=== PATIENT | male | born 1980 | race Caucasian/White ===

== ENCOUNTER 2018-11-03 00:28 | Emergency (ER) | payer SELFPAY ==
[2018-11-03] MEDS ORDERED: AZITHROMYCIN 250 MG TAB PO ONE (00:44)
[2018-11-03] MEDS ORDERED: cefTRIAXone SODIUM 1 GM VIAL IM ONE (00:44)
[2018-11-03] MEDS ORDERED: LIDOCAINE 1% 10 ML VIAL INJ ONE (00:47)
--- NOTE | 2018-11-03 00:49 | ED.PDOC ---
History of Present Illness - General Chief Complaint: Problem Stated Complaint: genital discharge Time Seen by Provider: 11/03/18 00:43 Source: patient Exam Limitations: no limitations - History of Present Illness Initial Comments: patient comes in today for urethral infection. 4-5 days ago patient had a piercing which he is subsequently removed. Yesterday he realized he was having drainage that was purulent and today noted that he had some dysuria. Patient took out the piercing when he realized yesterday he was having drainage. He has no fever, tears, nausea or vomiting. Patient's past medical history is significant for hepatitis C. Patient is sexually active and has had STDs in the past. Patient is allergic to penicillin and sulfa but can take cephalosporins without difficulty and has taken both Keflex and Rocephin in the past Timing/Duration: yesterday, getting worse Quality: mild Onset Location: urethral Radiation: none Activites at Onset: none Sexual intercourse history: less than 2 months ago Improving Factors: nothing Worsening Factors: nothing Associated Symptoms: denies symptoms Allergies/Adverse Reactions: Allergies Penicillin G Allergy (Intermediate, Unverified 06/19/13 21:26) Sulfa Antibiotics Allergy (Verified 11/03/18 00:46) Home Medications: Ambulatory Orders Cephalexin Monohydrate [Keflex] 500 mg PO TID #30 cap 11/03/18 Review of Systems - Review of Systems Constitutional: States: no symptoms reported. Denies: chills, fever EENTM: States: no symptoms reported. Denies: eye pain, ear discharge, nose congestion Respiratory: States: no symptoms reported. Denies: cough, short of breath Cardiology: States: no symptoms reported. Denies: chest pain, palpitations Gastrointestinal/Abdominal: States: no symptoms reported. Denies: abdominal pain, nausea, vomiting Genitourinary: States: see HPI, discharge, dysuria Past Medical History (General) - Patient Medical History Hx MRSA: Yes - Face 2013 MRSA Source:: Wound Physical Exam - Physical Exam General Appearance: Alert, Anxious, No apparent distress Eyes, Ears, Nose, Throat Exam: normal ENT inspection Cardiovascular/Respiratory: regular rate, rhythm, no M/R/G, normal peripheral pulses, normal breath sounds, no respiratory distress Gastrointestinal/Abdominal: normal bowel sounds Male Genital Exam: other - patient has thin, yellow drainage from urthra, piercing site is closed with no erythema or induration Progress - Progress Progress: discussed with patient the importance of follow-up with infection. We have given him Rocephin 1 g and Zithromax 1 g today. We'll send him home on Keflex 500 mg 3 times a day 10 days and asked him to follow up with his PCP on Sunday. Return to ER for swelling, redness, temperature greater than 100.5. GC and chlamydia are send outs that they were taken to the [facility] department can follow-up if it is an STD. 11/03/18 00:52 Departure - Departure Clinical Impression: Urethritis Disposition: Discharge to Home or Self Care Condition: Fair Departure Forms: ED Discharge - Pt. Copy, Patient Portal Self Enrollment Prescriptions: Cephalexin Monohydrate [Keflex] 500 mg PO TID #30 cap Home Medications: Ambulatory Orders Cephalexin Monohydrate [Keflex] 500 mg PO TID #30 cap 11/03/18 Additional Instructions: follow up with his PCP on Sunday. Return to ER for swelling, redness, temperature greater than 100.5.
[2018-11-03 01:17] VITALS: BP 140/86; TEMP 99.1; O2SAT 97
== END 2018-11-03 01:10 | disposition home or self-care (01) ==
LOC: ER 00:28
DX: N34.2 Other urethritis (principal); Z88.2 Allergy status to sulfonamides; Z88.0 Allergy status to penicillin
CPT/HCPCS: 81001; 87491; 87591; J0696; Q0144

== ENCOUNTER 2020-02-11 20:17 | Emergency (ER) | payer SELFPAY ==
[2020-02-11] MEDS ORDERED: VANCOMYCIN HCL INJ 1,000 MG, VANCOMYCIN HCL INJ 500 MG in SODIUM CHLORIDE 0.9% 250ML 25... IVPB ONE (20:41)
[2020-02-11] MEDS ORDERED: CEFEPIME 2 GM in SODIUM CHL 0.9% 100ML MINI-BAG 100 ML IVPB ONE (20:41)
[2020-02-11] MEDS ORDERED: CEFEPIME 2 GM VIAL ONE (20:53)
[2020-02-11] MEDS ORDERED: VANCOMYCIN HCL INJ 500 MG VIAL ONE (20:53)
[2020-02-11] MEDS ORDERED: VANCOMYCIN HCL INJ 1,000 MG VIAL IVPB ONE (20:53)
[2020-02-11] MEDS ORDERED: SODIUM CHL 0.9% 100ML MINI-BAG 0 ML IVPB ONE (20:53)
[2020-02-11] MEDS ORDERED: SODIUM CHLORIDE 0.9% 250ML 0 ML ONE (20:53)
[2020-02-11] MEDS ORDERED: TETANUS,DIPHTHERIA,PERTUSSIS 1 EA SYG IM ONE (21:20)
[2020-02-11] MEDS ORDERED: CIPROFLOXACIN 500 MG TAB PO ONE (21:20)
--- NOTE | 2020-02-11 21:24 | RAD ---
CLINICAL HISTORY: 39 years Male nail to distal 1st metatarsal area COMPARISON: None TECHNIQUE: AP and lateral views of the left [] foot are obtained. FINDINGS: OSSEOUS: There is no evidence of acute fracture or osteolytic/osteoblastic lesions. There is no evidence of subluxation or dislocation. The joint spaces are preserved. However there is widening of the space between the first and second MCP joints with soft tissue edema. There is no evidence of degenerative osteophytosis or sclerosis. There is no evidence of marginal erosive changes to suggest an inflammatory arthritis. The ankle mortise is symmetric with a smooth talar dome and no evidence of widening of the distal tibiofibular syndesmosis. SOFT TISSUES: There is soft tissue swelling along the plantar aspect of the forefoot at the level of the MTP joints likely secondary to the reported penetrating injury No evidence of significant soft tissue calcifications.. No radiopaque foreign bodies. There is no evidence of an ankle joint effusion. IMPRESSION: No acute osseous abnormality. Soft tissue injury between the first and second MTP joints with widening. Ligamentous injury not excludable. Remainder of findings as described above. Electronically signed by: Eunice Palma MD 02/11/2020 9:22 PM CDT
[2020-02-11] MEDS ORDERED: CEPHALEXIN MONOHYDRATE 500 MG CAP PO ONE (21:25)
[2020-02-11] MEDS ORDERED: rifAMPin 300 MG CAP PO ONE (21:25)
--- NOTE | 2020-02-11 21:38 | ED.PDOC ---
History of Present Illness - General Chief Complaint: Lower Extremity Injury Stated Complaint: left foot red and swollen Time Seen by Provider: 02/11/20 20:38 Source: patient Exam Limitations: no limitations - History of Present Illness Initial Comments: The patient is a 39-year-old male presented emergency room secondary to pain in his left foot. Apparently about 36 hours ago the patient stepped on a nail and the nail and then just adjacent to the distal first metatarsal left foot and almost came out the skin on the top of his foot. He removed the nail and try to clean the wound as best he could. Now approximately 36 hours later there is significant erythema and swelling. The entry wound has completely sealed over. No evidence of any abscess formation yet at this time. He is able to bend the toe. He is neurovascularly intact. There is significant pain. Patient does have several medication allergies. The patient is refusing IV antibiotics. He does understand that this may limit the effectiveness of treatment and increase the risk of him losing the appendage. Again he has been offered IV antibiotics and is refusing. Timing/Duration: other Severity: severe Improving Factors: nothing Worsening Factors: movement Associated Symptoms: denies symptoms Allergies/Adverse Reactions: Allergies Penicillin G Allergy (Intermediate, Unverified 06/19/13 21:26) Sulfa Antibiotics Allergy (Verified 11/03/18 00:46) Home Medications: Ambulatory Orders Cephalexin Monohydrate [Keflex] 500 mg PO TID #30 cap 11/03/18 Cephalexin Monohydrate [Keflex] 500 mg PO Q8H #45 cap 02/11/20 Ciprofloxacin [Cipro] 500 mg PO BID #28 tab 02/11/20 Rifampin [Rifadin] 300 mg PO Q8HR #42 cap 02/11/20 Review of Systems - Review of Systems Constitutional: States: malaise EENTM: States: no symptoms reported Respiratory: States: no symptoms reported Cardiology: States: no symptoms reported Gastrointestinal/Abdominal: States: no symptoms reported Genitourinary: States: no symptoms reported Musculoskeletal: States: see HPI Skin: States: see HPI Neurological: States: no symptoms reported Endocrine: States: no symptoms reported All other Systems: No Change from Baseline Past Medical History (General) - Patient Medical History Hx Seizures: No Hx Stroke: No Hx Dementia: No Hx Asthma: Yes Hx of COPD: No Hx Cardiac Disorders: No Hx Congestive Heart Failure: No Hx Pacemaker: No Hx Hypertension: No Hx Thyroid Disease: No Hx Diabetes: No Hx Gastroesophageal Reflux: No Hx Renal Disease: No Hx Cancer: No Hx of HIV: No Hx Hepatitis C: No Hx MRSA: Yes - Face 2013 MRSA Source:: Wound Surgical History: tonsillectomy, other - Vaccination History Hx Tetanus, Diphtheria Vaccination: No Hx Influenza Vaccination: No Hx Pneumococcal Vaccination: No Immunizations Up to Date: No - Social History Hx Tobacco Use: Yes Hx Chewing Tobacco Use: No Hx Alcohol Use: Yes Hx Substance Use: No Hx Substance Use Treatment: No Hx Depression: Yes Feels Threatened In Home Enviroment: No Feels Threatened In a Relationship: No Hx Physical Abuse: No Hx Emotional Abuse: No Hx Suspected Abuse: No - Activities of Daily Living Hospice Agency (if applicable):: None - Female History Patient is a Female of Child Bearing Age (10 -59 yrs old): No Family Medical History - Family History Father Family History: Unknown Physical Exam - Physical Exam General Appearance: Alert, No apparent distress Eye Exam: bilateral normal Ears, Nose, Throat: hearing grossly normal, normal pharynx Respiratory: no respiratory distress, no accessory muscle use Cardiovascular/Chest: normal peripheral pulses, no edema Peripheral Pulses: dorsalis pedis,right: 2+, dorsalis pedis,left: 2+ Rectal Exam: deferred Extremity: normal range of motion, no calf tenderness, normal capillary refill Neurologic: screw cutter II-XII nml as tested, alert, normal mood/affect, oriented x 3 Skin Exam: other - Severe erythema of the left foot surrounding the puncture site and the distal first metatarsal. Exquisite tenderness to palpation. Moderate swelling. No abscess at this point to drain. Comments: Vital Signs - 24 hr 02/11/20 20:25 Temperature 98.5 F Pulse Rate [ 88 pulse ox] Respiratory 18 Rate Blood Pressure 130/81 [Left Arm] O2 Sat by Pulse 99 Oximetry Progress - Progress Progress: 02/11/20 21:40 The patient is a 39-year-old male presented emergency room secondary to cellulitis developing at a puncture wound from yesterday. Erythema south rrounding the distal first distal metatarsal on the left. No abscess to drain at this time. X-ray shows no obvious bony pathology. The patient refuses IV antibiotics and does understand that that may reduce the efficacy and lead to a poor outcome. Given the patient's antibiotic allergies and that limitation, the patient is going to be placed on rifampin, Keflex and ciprofloxacin to primarily target staph, strep and Pseudomonas. He will be placed on these for 14 days. He does need to take these with food to prevent stomach upset. Additionally the patient has been instructed to xuan the border of the redness over the next few days to make sure it is gradually reducing. Obviously if his clinical condition is worsening then he absolutely needs to come in and get IV antibiotics. He eaton s understand this. The patient can use crutches to get around secondary to pain. Motrin or Aleve will be most beneficial due to significant inflammation. Keep well-hydrated while on the antibiotics. Avoid alcohol intake. He does need to follow-up with his primary care doctor before the weekend for repeat evaluation. ER warnings are given. lucas [email or web address] [phone] 02/11/20 21:46 the patient also received a tetanus shot. - Results/Orders Results/Orders: X-ray of the left foot shows no evidence of any fracture or dislocation. No evidence of any residual foreign body. Possible ligamentous injury between the first and second metatarsal joints 02/11/20 21:32 BLOOD CULTURE Stat Laboratory Results - last 24 hr 02/11/20 02/11/20 21:03 21:03 WBC 7.4 RBC 5.25 Hgb 15.5 Hct 45.9 MCV 87.3 MCH 29.6 MCHC 33.9 RDW 13.2 Plt Count 219 MPV 7.7 Absolute Neuts (auto) 5.10 Absolute Lymphs (auto) 1.30 Absolute Monos (auto) 0.70 Absolute Eos (auto) 0.20 Absolute Basos (auto) 0.10 Neutrophils % 69.2 Lymphocytes % 16.9 L Monocytes % 9.6 H Eosinophils % 3.2 Basophils % 1.1 Sodium 137 Potassium 3.3 L Chloride 102 Carbon Dioxide 29 Anion Gap 9.3 L BUN 17 Creatinine 0.92 BUN/Creatinine Ratio 18.5 Random Glucose 98 Serum Osmolality 275.3 Calcium 9.0 Total Bilirubin 0.4 AST 22 ALT 17 Alkaline Phosphatase 70 Serum Total Protein 6.9 Albumin 3.9 Globulin 3.0 Albumin/Globulin Ratio 1.3 Departure - Departure Clinical Impression: Cellulitis of foot Puncture wound of foot Qualifiers: Encounter type: initial encounter Laterality: left Qualified Code(s): S91.332A - Puncture wound without foreign body, left foot, initial encounter Disposition: Discharge to Home or Self Care Condition: Fair Departure Forms: ED Discharge - Pt. Copy, Patient Portal Self Enrollment Instructions: Cellulitis (Skin Infection), Adult (DC) Diet: regular diet Activity: increase activity as tolerated Prescriptions: Rifampin [Rifadin] 300 mg PO Q8HR #42 cap Cephalexin Monohydrate [Keflex] 500 mg PO Q8H #45 cap Ciprofloxacin [Cipro] 500 mg PO BID #28 tab Home Medications: Ambulatory Orders Cephalexin Monohydrate [Keflex] 500 mg PO TID #30 cap 11/03/18 Cephalexin Monohydrate [Keflex] 500 mg PO Q8H #45 cap 02/11/20 Ciprofloxacin [Cipro] 500 mg PO BID #28 tab 02/11/20 Rifampin [Rifadin] 300 mg PO Q8HR #42 cap 02/11/20 Additional Instructions: The patient is a 39-year-old male presented emergency room secondary to cellulitis developing at a puncture wound from yesterday. Erythema surrounding the distal first distal metatarsal on the left. No abscess to drain at this time. X-ray shows no obvious bony pathology. The patient refuses IV antibiotics and does understand that that may reduce the efficacy and lead to a poor outcome. Given the patient's antibiotic allergies and that limitation, the patient is going to be placed on rifampin, Keflex and ciprofloxacin to primarily target staph, strep and Pseudomonas. He will be placed on these for 14 days. He does need to take these with food to prevent stomach upset. Additionally the patient has been instructed to xuan the border of the redness over the next few days to make sure it is gradually reducing. Obviously if his clinical condition is worsening then he absolutely needs to come in and get IV antibiotics. He does understand this. The patient can use crutches to get around secondary to pain. Motrin or Aleve will be most beneficial due to significant inflammation. Keep well-hydrated while on the antibiotics. Avoid alcohol intake. He does need to follow-up with his primary care doctor before the weekend for repeat evaluation. ER warnings are given.
[2020-02-11 22:24] VITALS: BP 123/74; TEMP 98.1; O2SAT 97
== END 2020-02-11 22:00 | disposition home or self-care (01) ==
LOC: ER 20:17
DX: L03.116 Cellulitis of left lower limb (principal); S91.332A Puncture wound without foreign body, left foot, initial encounter; W45.0XXA Nail entering through skin, initial encounter; Y92.9 Unspecified place or not applicable; F17.200 Nicotine dependence, unspecified, uncomplicated

== ENCOUNTER → 2020-03-22 | Outpatient (CLI) | payer OTHER ==
--- NOTE | 2020-03-23 08:34 | RAD ---
EXAM DESCRIPTION: Chest,2 Views CLINICAL HISTORY: ENCOUNTER FOR SCREENING FOR RESPIRATORY TUBERCULOSIS COMPARISON: 03/26/2019. TECHNIQUE: PA/lateral FINDINGS: The lungs are clear. No focal consolidation, pneumothorax or pleural effusion. No evidence of active pulmonary tuberculosis. The heart is normal in size. No acute osseous abnormality. IMPRESSION: 1. No acute cardiopulmonary abnormality. Electronically signed by: Harsha Dykes DO 03/23/2020 8:32 AM CDT
== END ==
LOC: RAD 16:07
PROVIDERS: ATTEND Nurse Practitioner Family
DX: Z11.1 Encounter for screening for respiratory tuberculosis (principal)